=== PATIENT | male | born 1965 | race Caucasian/White ===

== ENCOUNTER 2017-12-09 22:16 | Emergency (ER) | payer BC ==
[~2017-12-09] VITALS: Ht 170.2 cm; Wt 90.9 kg
[2017-12-09 22:20] VITALS: BP 130/80; PULSE 75; RESP 16; TEMP 97.3; O2SAT 98
[2017-12-09 22:36] VITALS: BP 118/75; PULSE 75; RESP 16; O2SAT 99
[2017-12-09] MEDS ORDERED: LOVA10TA PO (22:40)
[2017-12-09] MEDS ORDERED: CITA20TA4 PO (22:40)
[2017-12-09] MEDS ORDERED: FEXO15TA PO (22:40)
[2017-12-09] MEDS ORDERED: LISI-515 PO (22:40)
[2017-12-09 22:41] VITALS: BP_SYST 118; BP_SYST 119; BP_DIAS 68; BP_DIAS 75; PULSE 73; RESP 16
[2017-12-09 22:42] VITALS: O2SAT 97
[2017-12-09] MEDS ORDERED: NITROGLYCERIN 2% OINT 1 GM PACKET TOPICAL ONE (22:45)
--- NOTE | 2017-12-09 23:04 | RADRPT ---
EXAM DATE/TIME: 12/09/2017 22:47 [place] COMPARISON: No previous studies available for comparison. INDICATIONS : Chest tightness. MEDICAL HISTORY : None. SURGICAL HISTORY : None. ENCOUNTER: Initial ACUITY: 1 day PAIN SCORE: 2/10 LOCATION: Bilateral chest FINDINGS: A single view of the chest demonstrates the lungs to be symmetrically aerated without evidence of mas s, infiltrate or effusion. The cardiomediastinal contours are unremarkable. Osseous structures are intact. CONCLUSION: No acute disease. Neel Landers Jr., MD on December 09, 2017 at 22:59 Board Certified Radiologist. This report was verified electronically.
[2017-12-09 23:10] LABS: AUTOMATED NEUTROPHIL # 7.4 TH/MM3 (1.8-7.7); BASOPHIL # 0.1 TH/MM3 (0-0.2); BASOPHIL % 0.5 % (0.0-2.0); EOSINOPHIL # 0.2 TH/MM3 (0-0.4); EOSINOPHIL % 2.4 % (0.0-4.0); HEMATOCRIT 37.3 % (39.0-51.0); HEMOGLOBIN 13.6 GM/DL (13.0-17.0); LYMPH % 12.5 % (9.0-44.0); LYMPHOCYTE # 1.2 TH/MM3 (1.0-4.8); MEAN CELL VOLUME 87.4 FL (80.0-100.0); MEAN CORPUSCULAR HEMOGLOBIN 31.8 PG (27.0-34.0); MEAN PLATELET VOLUME 7.9 FL (7.0-11.0); MONO % 9.9 % (0.0-8.0); NEUT % 74.7 % (16.0-70.0); PLATELET COUNT 179 TH/MM3 (150-450); RED BLOOD COUNT 4.27 MIL/MM3 (4.50-5.90); RED CELL DISTRIBUTION WIDTH 12.6 % (11.6-17.2)
[2017-12-09 23:15] LABS: MEAN CORPUSCULAR HGB CONC 36.4 % (32.0-36.0)
--- NOTE | 2017-12-09 23:32 | PD ---
HPI . Syncope Chief Complaint: Syncope/Near-Syncope Time Seen by Provider: 22:27 Travel History International Travel<30 days: No Contact w/Intl Traveler<30days: No Traveled to known affect area: No History of Present Illness HPI 52-year-old male history of hypertension, status post syncopal episode while eating [place] food with friends this evening. Patient noted slight chest discomfort prior to notes slight chest discomfort now present to out of 10. Patient also states he just distal is right. Patient has no history of syncope no cardiac history. Patient has no history of Marfan's or family history of aneurysms or dissections. No family history of clotting disorders. Patient denies any recent sedentary. Her confined travel, no leg pain or edema. No headaches or visual changes no focal weakness and Versed tingling no incontinence. [facility] Past Medical History Narrative Medical Past medical history reviewed Anxiety: Yes Cardiovascular Problems: Yes (HTN) Diminished Hearing: No Hypertension: Yes Social History Alcohol Use: Yes (WEEKLY) Tobacco Use: No Substance Use: No Allergies-Medications (Allergen,Severity, Reaction): Coded Allergies: Sulfa (Sulfonamide Antibiotics) (Verified Allergy, Intermediate, 12/09/17) amoxicillin (Verified Allergy, Intermediate, 12/09/17) cephalexin (Verified Allergy, Intermediate, 12/09/17) clavulanic acid (Verified Allergy, Intermediate, 12/09/17) Reported Meds & Prescriptions Reported Meds & Active Scripts Active Reported Marely Allergy (Fexofenadine HCl) 180 Mg Tab 180 Mg PO DAILY Lovastatin 10 Mg Tab 10 Mg PO DAILY Lisinopril 20 Mg Tab 20 Mg PO DAILY Citalopram (Citalopram Hydrobromide) 20 Mg Tab 20 Mg PO DAILY Narrative Medication Allergies and medications reviewed Review of Systems Except as stated in HPI: all other systems reviewed are Neg General / Constitutional: No: Fever Eyes: No: Visual changes HENT: No: Headaches Cardiovascular: Positive: Chest Pain or Discomfort, Syncope, No: Palpitations, Irregular Rhythm, Tachycardia, Diaphoresis Respiratory: No: Shortness of Breath, Orthopnea, Hemoptysis, Stridor, Night Sweats, Pleuritic Pain Gastrointestinal: No: Abdominal Pain Genitourinary: No: Dysuria Musculoskeletal: No: Pain Skin: No Rash Neurologic: Positive: Syncope, No: Weakness, Dizziness, Focal Abnormalities, Coordination Problem, Tremor, Ataxia, Headache, Change in Mentation, Slurred Speech, Paresthesia, Incontinence, Seizures, Sensory Disturbance Psychiatric: No: Depression Endocrine: No: Polydipsia Hematologic/Lymphatic: No: Easy Bruising Physical Exam Narrative GENERAL: Awake alert oriented 3 in no acute distress SKIN: Warm and dry. Color is normal no diaphoresis cyanosis or pallor HEAD: Atraumatic. Normocephalic. EYES: Pupils equal and round. No scleral icterus. No injection or drainage. ENT: No nasal bleeding or discharge. Mucous membranes pink and moist. NECK: Trachea midline. No JVD. Supple full range of motion no bruits CARDIOVASCULAR: Regular rate and rhythm. S1-S2 no murmurs or gallops RESPIRATORY: No accessory muscle use. Clear to auscultation. Breath sounds equal bilaterally. GASTROINTESTINAL: Abdomen soft, non-tender, nondistended. Hepatic and splenic margins not palpable. MUSCULOSKELETAL: Extremities without clubbing, cyanosis, or edema. No obvious deformities. NEUROLOGICAL: Awake and alert. No obvious cranial nerve deficits. Motor grossly within normal limits. Five out of 5 muscle strength in the arms and legs. Normal speech. PSYCHIATRIC: Appropriate mood and affect; insight and judgment normal. Data Data Last Documented VS Vital Signs Date Time Temp Pulse Resp B/P (MAP) Pulse Ox O2 Delivery O2 Flow Rate FiO2 12/10/17 01:09 72 16 131/73 (92) 98 Room Air 12/09/17 22:20 97.3 Orders Orders Electrocardiogram (12/09/17 22:27) B-Type Natriuretic Peptide (12/09/17 22:27) Ckmb (Isoenzyme) Profile (12/09/17 22:27) Complete Blood Count With Diff (12/09/17 22:27) Comprehensive Metabolic Panel (12/09/17 22:27) D-Dimer (12/09/17 22:27) Magnesium (Mg) (12/09/17 22:27) Prothrombin Time / Inr (Pt) (12/09/17 22:27) Act Partial Throm Time (Ptt) (12/09/17 22:27) Troponin I (12/09/17 22:27) Chest, Single Ap (12/09/17 22:27) Ecg Monitoring (12/09/17 22:27) Bilateral Bp Monitoring (12/09/17 22:27) Iv Access Insert/Monitor (12/09/17 22:27) Oximetry (12/09/17 22:27) Oxygen Administration (12/09/17 22:27) Nitroglycerin 2% Oint (Nitroglycerin 2% (12/09/17 22:45) Cta Thor Abd Aorta W Iv C W3d (12/09/17 ) CKMB (12/09/17 22:56) CKMB% (12/09/17 22:56) Troponin I (12/10/17 00:48) Electrocardiogram (12/10/17 ) Labs Laboratory Tests Test 12/09/17 22:56 12/10/17 01:07 White Blood Count 10.0 TH/MM3 Red Blood Count 4.27 MIL/MM3 Hemoglobin 13.6 GM/DL Hematocrit 37.3 % Mean Corpuscular Volume 87.4 FL Mean Corpuscular Hemoglobin 31.8 PG Mean Corpuscular Hemoglobin Concent 36.4 % Red Cell Distribution Width 12.6 % Platelet Count 179 TH/MM3 Mean Platelet Volume 7.9 FL Neutrophils (%) (Auto) 74.7 % Lymphocytes (%) (Auto) 12.5 % Monocytes (%) (Auto) 9.9 % Eosinophils (%) (Auto) 2.4 % Basophils (%) (Auto) 0.5 % Neutrophils # (Auto) 7.4 TH/MM3 Lymphocytes # (Auto) 1.2 TH/MM3 Monocytes # (Auto) 1.0 TH/MM3 Eosinophils # (Auto) 0.2 TH/MM3 Basophils # (Auto) 0.1 TH/MM3 CBC Comment AUTO DIFF Differential Total Cells Counted 100 Neutrophils % (Manual) 64 % Band Neutrophils % 8 % Lymphocytes % 12 % Monocytes % 11 % Eosinophils % 3 % Basophils % 1 % Neutrophils # (Manual) 7.3 TH/MM3 Promyelocytes 1 % Differential Comment FINAL DIFF MANUAL Atypical Lymphocytes % Platelet Estimate NORMAL Platelet Morphology Comment NORMAL Red Cell Morphology Comment NORMAL Prothrombin Time 11.9 SEC Prothromb Time International Ratio 1.2 RATIO Activated Partial Thromboplast Time 22.4 SEC D-Dimer Quantitative (PE/DVT) 0.19 MG/L FEU Blood Urea Nitrogen 11 MG/DL Creatinine 1.06 MG/DL Random Glucose 159 MG/DL Total Protein 6.7 GM/DL Albumin 3.9 GM/DL Calcium Level 8.1 MG/DL Magnesium Level 2.0 MG/DL Alkaline Phosphatase 43 U/L Aspartate Amino Transf (AST/SGOT) 26 U/L Alanine Aminotransferase (ALT/SGPT) 50 U/L Total Bilirubin 0.7 MG/DL Sodium Level 135 MEQ/L Potassium Level 3.6 MEQ/L Chloride Level 98 MEQ/L Carbon Dioxide Level 29.5 MEQ/L Anion Gap 8 MEQ/L Estimat Glomerular Filtration Rate 74 ML/MIN Total Creatine Kinase 161 U/L Creatine Kinase MB 1.1 NG/ML Troponin I LESS THAN 0.02 NG/ML LESS THAN 0.02 NG/ML B-Type Natriuretic Peptide 5 PG/ML MDM Medical Decision Making Medical Screen Exam Complete: Yes Emergency Medical Condition: Yes Medical Record Reviewed: Yes Differential Diagnosis Syncope, cardiac related significant, dysrhythmia, aortic dissection, pulmonary embolus Narrative Course Chest x-ray negative. Laboratory examinations reviewed, no significant abnormalities. First cardiac enzymes troponin less than 0.02. EKG normal sinus rhythm 69 bpm, nonischemic, intervals normal. Patient has mild IVCD/incomplete right bundle branch block of indeterminate age. Repeat cardiac enzyme troponin less than 0.02. D-dimer normal. Case discussed with patient at length at numerous intervals with ED clerk carranza , JANAY Miller, an RN Ozzie in the room regarding possible causes of chest pain and syncope, recommendation for CT with IV contrast of the thoracic aorta with extension down to abdominal by protocol, as well as admission for observation under cardiac telemetry and serial enzymes. Patient states he feels much improved, is appreciative for his care, and is declining admission. Patient will sign out AGAINST MEDICAL ADVICE. Possible outcomes including increase morbidity, loss of function, and possible discussed. Patient expressed understanding Diagnosis Primary Impression: Chest pain Qualified Codes: R07.9 - Chest pain, unspecified Additional Impression: Syncope and collapse Patient Instructions: Chest Pain (ED), General Instructions, Syncope (ED) Additional Instructions: Follow-up with her doctor. Recommend stress test as an outpatient, and imaging of your great vessels including aorta. Urinary signed out AGAINST MEDICAL ADVICE, please feel free to return at any time for worsening or for care at [facility]. Return promptly for worsening Disposition: 07 AGAINST MEDICAL ADVICE Condition: Roberto White MD Dec 09, 2017 23:32
[2017-12-09 23:33] LABS: ALBUMIN 3.9 GM/DL (3.4-5.0); AST (GOT) 26 U/L (15-37); BICARBONATE 29.5 MEQ/L (21.0-32.0); BLOOD UREA NITROGEN 11 MG/DL (7-18); CALCIUM 8.1 MG/DL (8.5-10.1); CHLORIDE 98 MEQ/L (98-107); CREATININE 1.06 MG/DL (0.60-1.30); GLOMERULAR FILTRATION RATE 74 ML/MIN (>89); GLUCOSE,RANDOM 159 MG/DL (74-106); SODIUM (NA) 135 MEQ/L (136-145)
[2017-12-09 23:38] LABS: ALKALINE PHOSPHATASE 43 U/L (45-117); ALT (GPT) 50 U/L (12-78); TOTAL BILIRUBIN ADULT 0.7 MG/DL (0.2-1.0); TOTAL PROTEIN 6.7 GM/DL (6.4-8.2); TROPONIN I LESS THAN 0.02 NG/ML (0.02-0.05)
[2017-12-10 00:04] LABS: BANDS 8 % (0-6); BASOPHILS 1 % (0-2); MONOCYTES 11 % (0-8); NEUTROPHIL # MANUAL DIFF 7.3 TH/MM3 (1.8-7.7); POLYS (SEG NEUTROPHILS) 64 % (16-70); PROMYELOCYTES 1 % (0-0)
[2017-12-10 00:05] LABS: LYMPHOCYTES 12 % (9-44)
[2017-12-10 00:34] LABS: D-DIMER 0.19 MG/L FEU (0.00-0.50); INTERNATIONAL NORMALIZED RATIO 1.2 RATIO; PROTHROMBIN TIME - PATIENT 11.9 SEC (9.8-11.6)
[2017-12-10 01:09] VITALS: BP 131/73; PULSE 72; RESP 16; O2SAT 98
--- NOTE | 2017-12-10 14:27 | EKG ---
Date Performed: 12/09/2017 Time Performed: 22:32:13 PTAGE: 52 years EKG: Sinus rhythm BORDERLINE LEFT AXIS DEVIATION INCOMPLETE RIGHT BUNDLE BRANCH BLOCK BORDERLINE ECG NO PREVIOUS TRACING DOCTOR: Juana Gillette Interpretating Date/Time 12/10/2017 14:26:31
--- NOTE | 2017-12-10 14:37 | EKG ---
Date Performed: 12/10/2017 Time Performed: 01:22:47 PTAGE: 52 years EKG: Sinus rhythm MARKED LEFT AXIS DEVIATION INCOMPLETE RIGHT BUNDLE BRANCH BLOCK ABNORMAL ECG Since PREVIOUS TRACING , no significant change noted PREVIOUS TRACIN12/09/2017 22.32 DOCTOR: Juana Gillette Interpretating Date/Time 12/10/2017 14:36:40
== END 2017-12-10 02:18 | disposition left against medical advice (07) ==
LOC: NEPE 22:16
DX: R07.9 Chest pain, unspecified (principal); R55 Syncope and collapse; R94.31 Abnormal electrocardiogram [ECG] [EKG]; I10 Essential (primary) hypertension; F41.9 Anxiety disorder, unspecified; Z53.29 Procedure and treatment not carried out because of patient's decision for other reasons
CPT/HCPCS: 71045; 80053; 82550; 82552; 83735; 83880; 84484; 85007; 85027; 85379; 85610; 85730; 93005; 99285